=== PATIENT | male | born 1960 | race African-American/Black ===

== ENCOUNTER 2017-01-23 15:15 | Inpatient (IN) | payer MEDICARE ==
[2017-01-23 16:02] LABS: #Basophils 0.1 thou/uL (0.0-0.2); #Eosinphils 0.2 thou/uL (0.0-0.7); #Lymphocytes 2.1 thou/uL (1.20-3.40); #Monocytes 0.9 thou/uL (0.11-0.59); #Neutrophils 7.2 thou/uL (1.40-6.50); %Basophils 0.8 % (0.0-1.0); %Lymphocytes 19.8 % (21.0-51.0); %Monocytes 8.1 % (0.0-10.0); Hematocrit 42.8 % (42.0-52.0); Mean Platelet Volume 6.3 fL (7.4-10.4); Red Blood Cell (RBC) Count 4.46 mill/uL (4.70-6.10); White Blood Cell (WBC) Count 10.4 thou/uL (4.8-10.8)
[2017-01-23 16:25] LABS: ALT (SGPT) 14 U/L (8-55); AST (SGOT) 18 U/L (5-34); Alkaline Phosphatase 52 U/L (40-150); Anion Gap 15 mmol/L (10-20); BUN (Urea Nitrogen) 6 mg/dL (8.4-25.7); Bilirubin, Total 0.3 mg/dL (0.2-1.2); Calc. Creatinine Clearance 0 mL/min (70-130); Calcium 9.4 mg/dL (7.8-10.44); Carbon Dioxide 22 mmol/L (22-29); Chloride 101 mmol/L (98-107); Estimated GFR-MDRD Greater than 90; Protein, Total 7.3 g/dL (6.0-8.3)
--- NOTE | 2017-01-23 16:47 | RAD ---
EXAM: RIGHT FOOT THREE VIEWS 01/23/17 HISTORY: Diabetic ulcer. Worsening symptoms. COMPARISON: None. FINDINGS: There is internal fixation hardware at the level of the distal fibula. Chronic changes are noted. Lisfranc alignment is maintained. No fracture. Nonspecific hyperdensity in the dermis at the level of the third digit. Possible small ulceration on the medial aspect of the right foot at the level of first metatarsal. No evidence of erosion or maricel tructive changes to suggest osteomyelitis. Minimal soft tissue swelling. IMPRESSION: Dermal changes as described above. No radiographic evidence of osteomyelitis. POS: [facility]
[2017-01-23 17:00] LABS: Lactic Acid - Sepsis 2.8 mmol/L (0.5-2.2)
[2017-01-23] MEDS ORDERED: Morphine Sulfate 2 MG/ML SYRINGE ONE (17:20)
[2017-01-23] MEDS ORDERED: Piperacillin/Tazobactam 4.5 GM in Sodium Chloride 0.9% 100 ML IVPB SCH (17:45)
[2017-01-23] MEDS ORDERED: HumaLOG 300 UNITS/3 ML VIAL SC PRN (17:59)
[2017-01-23] MEDS ORDERED: Dextrose 50% Abboject 50 ML SYRINGE SLOW IVP PRN (17:59)
[2017-01-23] MEDS ORDERED: Dextrose 5% in Water 1,000 ML IV PRN (17:59)
[2017-01-23 18:26] LABS: Hemoglobin A1c 5.7 % (4.0-6.0)
[2017-01-23] MEDS ORDERED: ceFAZolin Sodium 1 GM VIAL ONE (18:33)
[2017-01-23] MEDS ORDERED: VANCOMYCIN IVPB PRN (18:37)
--- NOTE | 2017-01-23 18:40 | HP ---
PRIMARY CARE PROVIDER: [facility]. CHIEF COMPLAINT: Foot wound. HISTORY OF PRESENT ILLNESS: Mr. Marie is a pleasant 56-year-old gentleman who was seen in the [place] [facility] room [facility] on 01/23/2017. He reports that he developed skin breakdown over the dorsum of his right third toe approximately 5 w eeks ago. He saw his primary care provider. He has been applying Desitin. He reports that it has been progressively worsening. He reports that he has diminished sensation in his feet. He came to the emergency room today because the rash was not improving. He denies any fevers or chills. He denies any nausea or vomiting. He denies any chest pain or coug h. The following complete review of systems was negative, unless otherwise mentioned in the HPI or belo w: Constitutional: Weight loss or gain, sense of well-being, ability to conduct usual activities, exer cise tolerance. Skin/Breast: Rash, itching, changes in hair growth or loss, nail changes, breast lumps, tenderness, swelling, nipple discharge. Eyes: Vision, double vision, tearing, blind spots, pain. ENT/Mouth: Headaches (location, time of onset, duration, precipitating factors), vertigo, lighthead edness, injury. Vision, double vision, tearing, blind spots, pain, nose bleeding, colds, obstruction , discharge, dental difficulties, gingival bleeding, dentures, neck stiffness, pain, tenderness, mas ses in thyroid or other areas. Cardiovascular: Precordial pain, substernal distress, palpitations, syncope, dyspnea on exertion, o rthopnea, nocturnal paroxysmal dyspnea, edema, cyanosis, hypertension, heart murmurs, varicosities, phlebitis, claudication. Respiratory: Pain, shortness of breath, wheezing, stridor, cough, hemoptysis, fever or night sweats . Gastrointestinal: Poor appetite, dysphagia, indigestion, abdominal pain, heartburn, eructation, mario sea, vomiting, hematemesis, jaundice, constipation, or diarrhea, abnormal stools (denilson-colored, steve y, bloody, greasy, foul smelling), flatulence, hemorrhoids, recent changes in bowel habits. Genitourinary: Urgency, frequency, dysuria, nocturia, hematuria, polyuria, oliguria, unusual (or ch cristi in) color of urine, stones, hesitancy, change in size of stream, dribbling, acute retention or incontinence, libido, potency. Musculoskeletal: Pain, swelling, redness or heat of muscles or joints, limitation, of motion, muscu lar weakness, atrophy, cramps. Neurologic/Psychiatric: Convulsions, paralyses, tremor, incoordination, paraesthesias, difficulties with memory of speech, sensory or motor disturbances, or muscular coordination (ataxia, tremor), em otional problems, anxiety, depression, previous psychiatric care, unusual perceptions, hallucination s. Allergy/Immunologic: Skin rash, anemia, bleeding tendency, polydipsia, polyuria, intolerance to hea t or cold. PAST MEDICAL HISTORY: Significant for diabetes mellitus type 2 and hypertension. He does not know if his diabetes mellitus is well controlled, because he is unable to afford the glucometer strips, a nd gout. PAST SURGICAL HISTORY: Significant for laparoscopic cholecystectomy. SOCIAL HISTORY: The patient drinks 6-8 beers a day. He denies recreational drug use. He smokes jones lf a pack of cigarettes a day. FAMILY HISTORY: Significant for diabetes mellitus in several family members. ALLERGIES: No known drug allergies. CURRENT MEDICATIONS: Include allopurinol 300 mg daily, metoprolol 50 mg 2 times a day, glipizide 10 mg daily, amlodipine 10 mg daily, and metformin 1000 mg 2 times a day. PHYSICAL EXAMINATION: GENERAL: On examination, Mr. Marie is awake and alert, not in acute distress. VITAL SIGNS: He is afebrile. Blood pressure is 142/76. Pulse is 81. His breathing at rate of 20 and saturating 96% on room air. EYES: No scleral icterus. No conjunctival pallor. ENT: Moist mucosal membranes, no oropharyngeal erythema or exudates. NECK: Supple, nontender, normal range of movement. Trachea is midline. RESPIRATORY: Accessory muscles of breathing are not active. Chest wall movements are symmetric susy aterally. LUNGS: Clear to auscultation without wheeze, rhonchi or crepitations. CARDIOVASCULAR: S1 and S2 are heard, regular. Peripheral pulses palpable. No carotid bruit, no pe ricardial rub. ABDOMEN: Soft, nontender, bowel sounds are heard, no hepatomegaly, no splenomegaly. NEUROLOGIC: Diminished sensation over the right third, fourth, and fifth toes when compared to the left. Cranial nerves II-XII are intact. MUSCULOSKELETAL: Power is 5/5 in all 4 extremities, normal range of movement at all major extremity joints. SKIN: Rash over the dorsum of the right third toe, proximal right second and fourth toes as well as the adjoining foot. He also has reddish streaks starting in this area and extending to the lower f oot. LYMPHATIC: No inguinal lymphadenopathy. PSYCHIATRIC: Normal mood and normal affect, patient is oriented to time, place, and person. LABORATORY DATA: Mr. Marie's labs and investigations were reviewed. He is hyponatremic with sodiu m of 134. Otherwise, comprehensive metabolic profile is unremarkable. Lactic acid is elevated at 2 .8. C-reactive protein is less than 0.5. White count is normal, hemoglobin and platelet counts are normal as well. ESR is 5. ASSESSMENT AND PLAN: Mr. Marie is a pleasant 56-year-old gentleman who was seen at [facility] on 01/23/2017. His problem list includes: 1. Cellulitis: He will be admitted to the hospital on observation status and started on intravenou s antibiotics. Once he clinically improves, he will be step down to oral antibiotics and discharged home. I am starting him on Ancef and vancomycin at this time. 2. Hyponatremia: Mild, asymptomatic, we will recheck. 3. Diabetes mellitus: Resume home medications including metformin and glipizide, start Accu-Cheks and insulin sliding scale. Check hemoglobin A1c. 4. Hypertension: Continue metoprolol and amlodipine, monitor vital signs and titrate antihypertens shivam as needed. 5. Alcohol abuse: Patient has been counseled regarding alcohol avoidance. Start ASE protocol. 6. Tobacco use: The patient has been counseled regarding tobacco cessation. Start nicotine replac ement therapy. 7. Gout: Continue allopurinol. Many thanks for allowing me to participate in your patient's care. Please feel free to contact me w ith any questions or concerns. LEVEL OF RISK: Moderate. LEVEL OF COMPLEXITY: Moderate.
[2017-01-23] MEDS: Nicotine 14 MG PATCH TD SCH (20:17)
[2017-01-23] MEDS: Metoprolol Tartrate 50 MG TAB PO SCH (20:21)
[2017-01-23] MEDS: Acetaminophen 325 MG TAB PO PRN (20:24)
[2017-01-23] MEDS ORDERED: Vancomycin HCl 1 GM in Premix Bag 1 BAG IVPB SCH (21:00)
[2017-01-23] MEDS: Vancomycin HCl 1.25 GM in Sodium Chloride 0.9% 250 ML 250 ML IVPB SCH (23:11)
[2017-01-24] MEDS: Acetaminophen 325 MG TAB PO PRN ×2 (02:27→19:17)
[2017-01-24 05:19] LABS: #Basophils 0.1 thou/uL (0.0-0.2); #Eosinphils 0.2 thou/uL (0.0-0.7); #Lymphocytes 2.3 thou/uL (1.20-3.40); #Neutrophils 6.1 thou/uL (1.40-6.50); %Eosinophils 2.5 % (0.0-10.0); %Lymphocytes 23.2 % (21.0-51.0); %Monocytes 10.6 % (0.0-10.0); Hematocrit 41.6 % (42.0-52.0); Mean Platelet Volume 6.9 fL (7.4-10.4); Red Blood Cell (RBC) Count 4.32 mill/uL (4.70-6.10); White Blood Cell (WBC) Count 9.7 thou/uL (4.8-10.8)
[2017-01-24 06:02] LABS: Anion Gap 9 mmol/L (10-20); BUN (Urea Nitrogen) 7 mg/dL (8.4-25.7); Calc. Creatinine Clearance 145 mL/min (70-130); Calcium 9.2 mg/dL (7.8-10.44); Carbon Dioxide 27 mmol/L (22-29); Chloride 104 mmol/L (98-107); Estimated GFR-MDRD Greater than 90
[2017-01-24] MEDS: Allopurinol 300 MG TAB PO SCH (08:02)
[2017-01-24] MEDS: Metoprolol Tartrate 50 MG TAB PO SCH ×2 (08:02→20:46)
[2017-01-24] MEDS ORDERED: Enoxaparin Sodium 40 MG/0.4 ML SYRINGE SC SCH (09:00)
[2017-01-24] MEDS ORDERED: cefTRIAXone\\ROCEPHIN 1 GM in Sodium Chloride 0.9% 100 ML IVPB SCH (09:00)
[2017-01-24] MEDS: Vancomycin HCl 1.25 GM in Sodium Chloride 0.9% 250 ML 250 ML IVPB SCH ×2 (11:17→16:45)
[2017-01-24] MEDS: Nicotine 14 MG PATCH TD SCH (11:47)
[2017-01-24] MEDS ORDERED: HumaLOG 300 UNITS/3 ML VIAL SC PRN (14:06)
--- NOTE | 2017-01-24 14:11 | PDOC.PN ---
- Subjective Encounter Start Date: 01/24/17 Encounter Start Time: 14:09 Patient seen and examined. No new complaints. No overnight events - Objective Resuscitation Status: Resuscitation Status FULL:Full Resuscitation MAR Reviewed: Yes Vital Signs & Weight: Vital Signs (12 hours) Temp Pulse Resp BP Pulse Ox 01/24/17 09:10 96 01/24/17 08:03 72 01/24/17 08:00 98.1 F 72 18 01/24/17 07:04 98.7 F 72 16 136/73 94 L 01/24/17 04:33 95 01/24/17 02:24 65 16 141/81 H Weight Weight 189 lb 8 oz I&O: 01/23/17 01/24/17 01/25/17 06:59 06:59 06:59 Intake Total 720 600 Balance 720 600 Result Diagrams: 01/24/17 04:31 01/24/17 04:31 Additional Labs: Accuchecks 01/24/17 01/24/17 01/23/17 11:27 04:30 20:58 POC Glucose 90 104 147 H Radiology Reviewed by me: Yes (XR - no gas, osteo) Phys Exam - Physical Examination Constitutional: NAD Respiratory: no wheezing, no rhonchi Cardiovascular: RRR Gastrointestinal: soft, non-tender, positive bowel sounds Musculoskeletal: no edema wound dresses Neurological: non-focal Dx/Plan (1) Diabetic foot infection Code(s): E11.69 - TYPE 2 DIABETES MELLITUS WITH OTHER SPECIFIED COMPLICATION; L08.9 - LOCAL INFECTION OF THE SKIN AND SUBCUTANEOUS TISSUE, UNSP Status: Acute Comment: with cellulitis/ Rt foot (2) HTN (hypertension) Code(s): I10 - ESSENTIAL (PRIMARY) HYPERTENSION Status: Chronic (3) DM2 (diabetes mellitus, type 2) Status: Chronic (4) Tobacco dependence Code(s): F17.200 - NICOTINE DEPENDENCE, UNSPECIFIED, UNCOMPLICATED Status: Chronic (5) Chronic alcoholism Code(s): F10.20 - ALCOHOL DEPENDENCE, UNCOMPLICATED Status: Chronic - Plan DVT proph w/lovenox * Cont Vancomycin * Add Meropenem * AM labs * Gen surg consult in AM per wound care recom * Hold Glipizide/Metformin - Will cont sliding scale * NPO past MN - Gentle IVF starting tonight * Cont wound care * Reduce Amlodipine dose to 5 mg daily * Add PRN meds * Add alcohol withdrawal protocol with thiamine/folic acid/MVM * Change to inpatient - Patient will require 3-4 days for stabilization. Review of Systems - Medications/Allergies Allergies/Adverse Reactions: Allergies Allergy/AdvReac Type Severity Reaction Status Date / Time No Known Allergies Allergy Verified 01/23/17 22:08 Medications: Current Medications Acetaminophen (Tylenol) 650 mg PO Q4H PRN PRN Reason: Headache/Fever or Pain Last Admin: 01/24/17 02:27 Dose: 650 mg Allopurinol (Zyloprim) 300 mg PO DAILY [facility] Last Admin: 01/24/17 08:02 Dose: 300 mg Amlodipine Besylate (Norvasc) 5 mg PO DAILY [facility] Dextrose/Water (Dextrose 50%) 25 gm SLOW IVP PRN PRN PRN Reason: Hypoglycemia Glucagon (Glucagon) 1 mg IM PRN PRN PRN Reason: Hypoglycemia Hydralazine HCl (Apresoline) 10 mg SLOW IVP Q4H PRN PRN Reason: SBP Greater Than 180 Dextrose/Water (D5w) 1,000 mls @ 0 mls/hr IV .Q0M PRN; As Directed PRN Reason: Hypoglycemia Vancomycin HCl 1.25 gm/ Sodium (Chloride) 250 mls @ 166.667 mls/hr IVPB 0800, 1600,2359 [facility] Last Admin: 01/24/17 11:17 Dose: 250 mls Meropenem 1 gm/ Sodium (Chloride) 100 mls @ 200 mls/hr IVPB Q8H SHELL Sodium Chloride (Normal Saline 0.9%) 1,000 mls @ 70 mls/hr IV .[id number] [facility] Insulin Human Lispro (Humalog) 0 units SC .MILD SLIDING SCALE PRN PRN Reason: Mild Correctional Scale Insulin Human Lispro (Humalog) 0 units SC .BEDTIME SLIDING SC PRN PRN Reason: Bedtime Correctional Scale Metoprolol Tartrate (Lopressor) 50 mg PO BID [facility] Last Admin: 01/24/17 08:02 Dose: 50 mg Miscellaneous Medication (Pharmacy To Dose) 1 each IVPB PRN PRN PRN Reason: RPH TO DOSE VANC Nicotine (Nicoderm Patch) 14 mg TD 2100 [facility] Last Admin: 01/24/17 11:47 Dose: Not Given Sodium Chloride (Flush - Normal Saline) 10 ml IVF Q12HR SHELL Sodium Chloride (Flush - Normal Saline) 10 ml IVF PRN PRN PRN Reason: Saline Flush
[2017-01-24] MEDS ORDERED: Lorazepam 1 MG TAB PO PRN (14:12)
[2017-01-24] MEDS ORDERED: Folic Acid 1 MG TAB PO SCH (14:30)
[2017-01-24] MEDS: Sodium Chloride 0.9% 1,000 ML IV SCH (16:04)
[2017-01-24] MEDS: Meropenem 1 GM in Sodium Chloride 0.9% 100 ML IVPB SCH ×2 (16:06→23:07)
[2017-01-24 16:12] LABS: Vancomycin, Trough 14.8 ug/mL
[2017-01-24] MEDS: Vancomycin HCl 1.5 GM in Sodium Chloride 0.9% 250 ML 300 ML IVPB SCH (17:04)
[2017-01-25] MEDS: Vancomycin HCl 1.5 GM in Sodium Chloride 0.9% 250 ML 300 ML IVPB SCH ×3 (01:24→17:31)
[2017-01-25 05:44] LABS: #Basophils 0.1 thou/uL (0.0-0.2); #Eosinphils 0.3 thou/uL (0.0-0.7); #Lymphocytes 2.2 thou/uL (1.20-3.40); #Monocytes 1.1 thou/uL (0.11-0.59); #Neutrophils 5.7 thou/uL (1.40-6.50); %Basophils 0.9 % (0.0-1.0); %Eosinophils 3.5 % (0.0-10.0); %Lymphocytes 23.8 % (21.0-51.0); %Monocytes 11.4 % (0.0-10.0); Hematocrit 43.9 % (42.0-52.0); Mean Platelet Volume 6.9 fL (7.4-10.4); Red Blood Cell (RBC) Count 4.51 mill/uL (4.70-6.10); White Blood Cell (WBC) Count 9.4 thou/uL (4.8-10.8)
[2017-01-25 06:03] LABS: Anion Gap 10 mmol/L (10-20); BUN (Urea Nitrogen) 4 mg/dL (8.4-25.7); Calc. Creatinine Clearance 151 mL/min (70-130); Calcium 9.1 mg/dL (7.8-10.44); Carbon Dioxide 24 mmol/L (22-29); Chloride 104 mmol/L (98-107); Estimated GFR-MDRD Greater than 90; Magnesium 2.2 mg/dL (1.6-2.6)
[2017-01-25] MEDS: Meropenem 1 GM in Sodium Chloride 0.9% 100 ML IVPB SCH ×3 (06:23→23:05)
[2017-01-25] MEDS: Metoprolol Tartrate 50 MG TAB PO SCH ×2 (08:57→20:35)
[2017-01-25] MEDS: Allopurinol 300 MG TAB PO SCH (08:57)
[2017-01-25] MEDS: Folic Acid 1 MG TAB PO SCH (08:57)
[2017-01-25] MEDS: Multivit, Therapeutic 1 TAB PO SCH (08:57)
[2017-01-25 13:44] VITALS: BMI 28.7
[2017-01-25] MEDS: Sodium Chloride 0.9% 1,000 ML IV SCH (14:52)
[2017-01-25 16:41] LABS: Vancomycin, Trough 17.8 ug/mL
[2017-01-25] MEDS ORDERED: Sodium Chloride 0.9% 1,000 ML IV SCH (19:15)
--- NOTE | 2017-01-25 19:17 | PDOC.PN ---
- Subjective Encounter Start Date: 01/25/17 Encounter Start Time: 11:30 Patient seen and examined. No new complaints. No overnight events - Objective Resuscitation Status: Resuscitation Status FULL:Full Resuscitation MAR Reviewed: Yes Vital Signs & Weight: Vital Signs (12 hours) Temp Pulse Resp BP BP Pulse Ox 01/25/17 15:38 98 F 78 16 164/82 H 99 01/25/17 11:40 98 F 63 16 156/87 H 98 01/25/17 08:57 72 153/74 H 01/25/17 08:00 98.3 F 72 16 153/74 H 98 Weight Admit Weight 189 lb 8.009 oz Weight 189 lb 8.009 oz I&O: 01/24/17 01/25/17 01/26/17 06:59 06:59 06:59 Intake Total 1460 Balance 1460 Result Diagrams: 01/25/17 05:17 01/25/17 05:17 Additional Labs: Accuchecks 01/25/17 01/25/17 01/25/17 16:34 11:48 04:39 POC Glucose 135 H 115 H 91 01/24/17 20:37 POC Glucose 80 Phys Exam - Physical Examination Constitutional: NAD Respiratory: no wheezing, no rhonchi Cardiovascular: RRR, no rub Gastrointestinal: soft, non-tender, positive bowel sounds Musculoskeletal: no edema wound dressing + Dx/Plan (1) Diabetic foot infection Code(s): E11.69 - TYPE 2 DIABETES MELLITUS WITH OTHER SPECIFIED COMPLICATION; L08.9 - LOCAL INFECTION OF THE SKIN AND SUBCUTANEOUS TISSUE, UNSP Status: Acute Comment: with cellulitis/ Rt foot (2) HTN (hypertension) Code(s): I10 - ESSENTIAL (PRIMARY) HYPERTENSION Status: Chronic (3) DM2 (diabetes mellitus, type 2) Status: Chronic (4) Tobacco dependence Code(s): F17.200 - NICOTINE DEPENDENCE, UNSPECIFIED, UNCOMPLICATED Status: Chronic (5) Chronic alcoholism Code(s): F10.20 - ALCOHOL DEPENDENCE, UNCOMPLICATED Status: Chronic - Plan cont current plan of care, DVT proph w/SCDs * Cont Vanc/Meropenem * Consult ID per Surg * Cont wound care * Increase Amlodipine to home dose * Cont current meds as below Review of Systems - Review of Systems Constitutional: negative: Fever, Chills, Sweats, Weakness, Malaise, Other Respiratory: negative: Cough, Dry, Shortness of Breath, Hemoptysis, SOB with Excertion, Pleuritic Pain, Sputum, Wheezing Cardiovascular: negative: Chest Pain, Palpitations, Orthopnea, Paroxysmal Noc. Dyspnea, Edema, Light Headedness, Other Gastrointestinal: negative: Nausea, Vomiting, Abdominal Pain, Diarrhea, Constipation, Melena, Hematochezia, Other - Medications/Allergies Allergies/Adverse Reactions: Allergies Allergy/AdvReac Type Severity Reaction Status Date / Time No Known Allergies Allergy Verified 01/23/17 22:08 Medications: Current Medications Acetaminophen (Tylenol) 650 mg PO Q4H PRN PRN Reason: Headache/Fever or Pain Last Admin: 01/24/17 19:17 Dose: 650 mg Allopurinol (Zyloprim) 300 mg PO DAILY [facility] Last Admin: 01/25/17 08:57 Dose: 300 mg Amlodipine Besylate (Norvasc) 5 mg PO BID [facility] Dextrose/Water (Dextrose 50%) 25 gm SLOW IVP PRN PRN PRN Reason: Hypoglycemia Folic Acid (Folvite) 1 mg PO DAILY [facility] Last Admin: 01/25/17 08:57 Dose: 1 mg Glucagon (Glucagon) 1 mg IM PRN PRN PRN Reason: Hypoglycemia Hydralazine HCl (Apresoline) 10 mg SLOW IVP Q4H PRN PRN Reason: SBP Greater Than 180 Dextrose/Water (D5w) 1,000 mls @ 0 mls/hr IV .Q0M PRN; As Directed PRN Reason: Hypoglycemia Meropenem 1 gm/ Sodium (Chloride) 100 mls @ 200 mls/hr IVPB 0700,1500,2300 [facility] Last Admin: 01/25/17 14:49 Dose: 100 mls Vancomycin HCl 1.5 gm/ Sodium (Chloride) 300 mls @ 200 mls/hr IVPB 0100,0900, 1700 [facility] Last Admin: 01/25/17 17:31 Dose: 300 mls Sodium Chloride (Normal Saline 0.9%) 1,000 mls @ 50 mls/hr IV .Q20H [facility] Insulin Human Lispro (Humalog) 0 units SC .MILD SLIDING SCALE PRN PRN Reason: Mild Correctional Scale Insulin Human Lispro (Humalog) 0 units SC .BEDTIME SLIDING SC PRN PRN Reason: Bedtime Correctional Scale Lorazepam (Ativan) 1 mg PO Q4H PRN PRN Reason: ASE >=9 Metoprolol Tartrate (Lopressor) 50 mg PO BID [facility] Last Admin: 01/25/17 08:57 Dose: 50 mg Miscellaneous Medication (Pharmacy To Dose) 1 each IVPB PRN PRN PRN Reason: RPH TO DOSE VANC Multivitamins (Theragran) 1 tab PO DAILY [facility] Last Admin: 01/25/17 08:57 Dose: 1 tab Nicotine (Nicoderm Patch) 14 mg TD 2100 [facility] Last Admin: 01/24/17 11:47 Dose: Not Given Sodium Chloride (Flush - Normal Saline) 10 ml IVF Q12HR [facility] Last Admin: 01/25/17 08:58 Dose: Not Given Sodium Chloride (Flush - Normal Saline) 10 ml IVF PRN PRN PRN Reason: Saline Flush Thiamine HCl (Thiamine) 100 mg PO DAILY [facility] Last Admin: 01/25/17 08:57 Dose: 100 mg
[2017-01-25] MEDS: Nicotine 14 MG PATCH TD SCH (20:35)
--- NOTE | 2017-01-26 00:54 | CON ---
DATE OF CONSULTATION: 01/25/2017 REASON FOR CONSULTATION: Right third toe and foot skin changes and cellulitis. HISTORY OF PRESENT ILLNESS: Mr. Marie is a 56-year-old diabetic male who developed a rash over his right third toe about a month ago. He states that the toe became discolored and he developed open sores on it. He was unsure what caused this and denies any known trauma or injury to the area. He applied Desitin to it per his primary care doctor's recommendations, but it was not getting better. He was told that it could have occurred because his foot became waterlogged and so he quit washing his foot, but this did not help either. He eventually came to the emergency room because he did not see any improvement in the rash. In fact, he developed another area on his medial foot which was s imilar in appearance. He denies any fevers or chills and has not had much drainage except for just a small amount on the dressings. He does not really have much pain in his foot, although his sensat ion in his feet is diminished due to his diabetes. PAST MEDICAL HISTORY: Diabetes and hypertension. PAST SURGICAL HISTORY: Laparoscopic cholecystectomy. SOCIAL HISTORY: He smokes half a pack of cigarettes a day and drinks about a 6 pack but does not us e other drugs. FAMILY HISTORY: He has a family history of diabetes. ALLERGIES: No known allergies. OUTPATIENT MEDICATIONS: Include allopurinol, metoprolol, glipizide, amlodipine, and metformin. INPATIENT MEDICATIONS: Include allopurinol, amlodipine, folate, sliding scale insulin, meropenem, m etoprolol, multivitamin, NicoDerm, thiamine, vancomycin, and alcohol withdrawal prophylaxis with Ati van on a p.r.n. basis. PHYSICAL EXAMINATION: VITAL SIGNS: The patient has been afebrile since his admission. Heart rate in the 60s-70s, blood p ressure moderately elevated at 150s-160 systolic, respirations 16, 98%-99% saturated on room air. GENERAL: Reveals a healthy appearing gentleman in no acute distress. He is not flushed or toxic in appearance. He is not jaundiced or icteric. HEENT: Unremarkable. HEART: Regular in its rate and rhythm without murmurs, rubs, or gallops. LUNGS: Clear. ABDOMEN: Soft and nontender. EXTREMITIES: Warm and well perfused with easily palpable dorsalis pedis pulses. He has normal capi llary refill on his feet. His right third toe is discolored up onto the dorsum of his foot and has several open wounds. It is minimally swollen and there is no fluctuance or expressible drainage. T he wounds appeared to be superficial erosions and do not appear to track into the deep tissues. He does not have any lymphangitic streaking. There is another open area on the medial foot with what l ooked like confluent open wounds. Again, these do not seem to track deeply and there is no expressi ble drainage. ASSESSMENT: Open wounds of the foot of unclear etiology. These have an atypical appearance for vu ropathic injuries and I favor either an occult trauma or an infectious etiology for them. It is katy n possible that this could be a viral wound which has now become confluent. He did try Desitin gonzales tment without improvement and it does not have a typical fungal appearance. I am not sure that a to pical antifungal or antibiotic ointment would be helpful. Currently, the Wound Care team has silver alginate in place and this seems like a reasonable choice. He has swabs sent on arrival and these have gram-negative rods and beta-hemolytic strep, but the utility of swabs of open wounds of the eva t is usually not very high. He had one blood culture with coag-negative Staph, but this is likely a contaminate. I did speak with hospitalist and explained that I do not think there is any need for surgical intervention at this time, but this is a very unusual appearing rash and I am concerned abo ut less common infections may be even a herpetic component. He is going to ask Infectious Disease t o take a look at him. We will continue with conservative wound management and broad-spectrum antibi otics for now. I will follow the patient with the Wound Care team.
[2017-01-26] MEDS: Vancomycin HCl 1.5 GM in Sodium Chloride 0.9% 250 ML 300 ML IVPB SCH ×2 (01:28→08:54)
[2017-01-26 05:29] LABS: #Basophils 0.1 thou/uL (0.0-0.2); #Eosinphils 0.4 thou/uL (0.0-0.7); #Lymphocytes 2.1 thou/uL (1.20-3.40); #Neutrophils 6.8 thou/uL (1.40-6.50); %Basophils 1.1 % (0.0-1.0); %Eosinophils 3.5 % (0.0-10.0); %Lymphocytes 20.1 % (21.0-51.0); Hematocrit 42.5 % (42.0-52.0); Mean Platelet Volume 6.6 fL (7.4-10.4); White Blood Cell (WBC) Count 10.4 thou/uL (4.8-10.8)
[2017-01-26 06:03] LABS: Anion Gap 11 mmol/L (10-20); BUN (Urea Nitrogen) 6 mg/dL (8.4-25.7); Calc. Creatinine Clearance 141 mL/min (70-130); Calcium 9.2 mg/dL (7.8-10.44); Carbon Dioxide 23 mmol/L (22-29); Chloride 105 mmol/L (98-107); Estimated GFR-MDRD Greater than 90
[2017-01-26] MEDS: Meropenem 1 GM in Sodium Chloride 0.9% 100 ML IVPB SCH (07:46)
[2017-01-26 08:01] VITALS: TEMP 98
[2017-01-26] MEDS: Metoprolol Tartrate 50 MG TAB PO SCH (08:22)
[2017-01-26] MEDS: Folic Acid 1 MG TAB PO SCH (08:22)
[2017-01-26] MEDS: Allopurinol 300 MG TAB PO SCH (08:23)
[2017-01-26] MEDS: Multivit, Therapeutic 1 TAB PO SCH (08:23)
--- NOTE | 2017-01-26 10:43 | CON ---
DATE OF CONSULTATION: 01/26/2017 REASON FOR CONSULTATION: Right foot inflammatory process. HISTORY OF PRESENT ILLNESS: A 56-year-old who has history of type 2 diabetes, hypertension, gout, a nd new onset of skin breakdown over the medial aspect of the right mid foot region and the dorsal as pect of the third toe skin which developed 5 weeks prior and was secondary to rubbing inside a boot that he uses to take care of gardening needs. The patient is retired and lives in the area. The ar ea in the foot was not improving and therefore he came for management. No fever or chills. No head aches, no change in visual symptoms, sore throat, odynophagia, dysphagia, no cough or sputum product ion or chest pain, no abdominal pain or diarrhea. No symptoms. No other joint symptoms. No vu rological symptoms. PAST MEDICAL HISTORY: Diabetes type 2, hypertension, gout. PAST SURGICAL HISTORY: Cholecystectomy. SOCIAL HISTORY: Drinks daily, 6-8 beers a day, smokes daily, retired. FAMILY HISTORY: Diabetes. ALLERGIES: None. MEDICATIONS: Allopurinol, metoprolol, glipizide, Norvasc, metformin. PHYSICAL EXAMINATION: VITAL SIGNS: Temperature has been normal through the hospital stay. Other vital signs with mild el evation in systolic blood pressure. SKIN: Shows the areas of erosion, superficial ulcerations in the dorsal aspect of the third toe rig ht foot and medial aspect of the right mid foot region with hyperpigmentation. No significant drai nage. No lymphadenopathy. HEENT: Noncontributory. NECK: Supple. LUNGS: With symmetric clear breath sounds. HEART: S1, S2, regular rate. ABDOMEN: Soft, not distended or tender. No ascites. No bladder distention. EXTREMITIES: No joint inflammatory activity. Pulses 2+ in dorsalis pedis. NEUROLOGIC: Nonfocal. LABORATORY: White cell count has been normal throughout the hospital stay with a normal differentia l. Sodium 135, creatinine 0.72. CRP 0.55. X-rays with no evidence of any bony abnormalities. ASSESSMENT: 1. Type 2 diabetes. 2. Abrasions skin of right foot with chronic inflammatory activity, likely dermatitis with some sup erficial cellulitis. DISCUSSION: No evidence of deep involvement. At this point, would recommend transition to oral Kef fabrizio and topical corticosteroids. The patient should avoid wearing the boots that led to this proble m and should change his footwear for future reference. Follow up in the outpatient setting. Check HIV, RPR and hepatitis C.
[2017-01-26 11:43] VITALS: BP 151/83
--- NOTE | 2017-01-26 14:59 | DIS ---
DATE OF DISCHARGE: 01/26/2017 DISCHARGE DISPOSITION: Home. FOLLOWUP: 1. Follow up with primary care physician at [facility] in 1 week. 2. Follow up with Infectious Disease, Dr. Liu after 10 days. The patient was seen and examined on the day of discharge. Denies any new complaints. No fever or chills reported. ALLERGIES: No known drug allergies. DISCHARGE MEDICATIONS: 1. Keflex 500 mg t.i.d. for the next 10 days. 2. Mupirocin 2% ointment 3 times daily for the next week. 3. Glipizide 10 mg daily. 4. Metformin 1000 mg b.i.d. 5. Allopurinol 300 mg daily. 6. Amlodipine 10 mg daily. 7. Metoprolol tartrate 100 mg daily. INPATIENT CONSULTANTS: 1. Infectious Disease, Dr. Liu. 2. General Surgery, Dr. Quan. SIGNIFICANT LABS: Hemoglobin A1c 5.7. BRIEF HOSPITAL COURSE: Patient is a 56-year-old male with diabetes mellitus type 2 and hypertension , who presented to the emergency room with a skin lesion over the right foot of 5 weeks' duration. Please refer to the history and physical for further details. The patient was admitted to the hospital with a diagnosis of diabetic foot infection with cellulitis . He was evaluated by Wound Care who recommended General Surgery consult. There was no surgical in tervention needed per General Surgery. General surgery recommended Infectious Disease consultation, which was done today. Dr. Liu recommended Keflex for the next 10 days along with mupirocin ointm ent. He has been cleared by Infectious Disease for discharge. FINAL DIAGNOSES: 1. Diabetic foot infection with cellulitis. 2. Diabetes mellitus type 2. 3. Hypertension. 4. Tobacco dependence. The patient was counseled. 5. Chronic alcoholism. 6. Mild hyponatremia. 7. Elevated inflammatory markers. CRP was 0.55. 8. Elevated lactic acid on admission, questionable sepsis on admission.
== END 2017-01-26 13:31 | disposition home or self-care (01) | DRG 638 ==
LOC: ERS 15:15 → 2SW 17:40 → OBSVTOIN 01-24 13:59 → T4-B 01-24 15:28
PROVIDERS: ADMIT Internal Medicine; ATTEND Internal Medicine
DX: E11.628 Type 2 diabetes mellitus with other skin complications (principal); L03.115 Cellulitis of right lower limb; S90.811A Abrasion, right foot, initial encounter; X50.9XXA Other and unspecified overexertion or strenuous movements or postures, initial encounter; I10 Essential (primary) hypertension; E87.1 Hypo-osmolality and hyponatremia; Z79.84 Long term (current) use of oral hypoglycemic drugs; Z23 Encounter for immunization; F17.210 Nicotine dependence, cigarettes, uncomplicated; F10.20 Alcohol dependence, uncomplicated; M10.9 Gout, unspecified
CPT/HCPCS: 36415; 36416; 80048; 80053; 80202; 83036; 83605; 83735; 85025; 85652; 86140; 87040; 87070; 87077; 87149; 87186; 87205; 90471; 90732; 96365; 96375; A4216; G0009; J0690; J0696; J1650; J2185; J2270; J2543; J3370; J7050

== ENCOUNTER 2022-12-14 11:11 | Emergency (ER) | payer MEDICARE ==
[2022-12-14] MEDS ORDERED: Ketorolac Tromethamine 30 MG/ML VIAL ONE (12:38)
[2022-12-14] MEDS ORDERED: Lidocaine 4% Patch TD SCH (13:00)
== END 2022-12-14 13:42 | disposition home or self-care (01) ==
LOC: ERS 11:11
DX: R07.81 Pleurodynia (principal); M54.9 Dorsalgia, unspecified; E11.9 Type 2 diabetes mellitus without complications; I10 Essential (primary) hypertension; F17.210 Nicotine dependence, cigarettes, uncomplicated
CPT/HCPCS: 71045; 96372; J1885

== ENCOUNTER 2024-02-14 10:29 | Outpatient (CLI) | payer MEDICARE | END 2024-02-14 10:30 | disposition home or self-care (01) | LOC: ULT 10:29 | PROVIDERS: ATTEND Student in an Organized Health Care Education/Training Program | DX: R74.01 Elevation of levels of liver transaminase levels (principal); R93.2 Abnormal findings on diagnostic imaging of liver and biliary tract | CPT/HCPCS: 76705 ==